=== PATIENT | female | born 1960 | race Caucasian/White ===

== ENCOUNTER 2017-03-29 10:25 | Emergency (ER) | payer OTHER ==
[~2017-03-29] VITALS: Ht 177.8 cm; Wt 110.7 kg
[2017-03-29 10:44] VITALS: BP 159/104
== END 2017-03-29 12:06 | disposition home or self-care (01) ==
LOC: ED 10:25
DX: S92.532A Displaced fracture of distal phalanx of left lesser toe(s), initial encounter for closed fracture (principal); I10 Essential (primary) hypertension; W22.8XXA Striking against or struck by other objects, initial encounter; Y93.89 Activity, other specified; Y99.8 Other external cause status; Y92.89 Other specified places as the place of occurrence of the external cause

== ENCOUNTER → 2017-10-09 | Outpatient (CLI) | payer OTHER ==
[2017-10-09 12:22] LABS: microscopic required? NO
[2017-10-09 12:26] LABS: BASOPHIL % 0.4 % (0-2); PLATELET COUNT 248 x10^3mcL (130-400)
[2017-10-09 12:34] LABS: urine erythrocyte NEGATIVE (NEGATIVE)
[2017-10-09 13:08] LABS: MAGNESIUM 2.3 mg/dL (1.8-2.4)
[2017-10-09 13:11] LABS: C REACTIVE PROTEIN < 0.2 mg/dL (<=0.9)
[2017-10-09 13:19] LABS: ALBUMIN 4.1 g/dL (3.4-5.0); ALKALINE PHOSPHATASE 226 U/L (46-116); ALT/SGPT 32 U/L (14-59); AST/SGOT 17 U/L (15-37); BILIRUBIN TOTAL 0.9 mg/dL (0.20-1.00); CALCIUM 10.4 mg/dL (8.5-10.1); CARBON DIOXIDE 25.1 mmol/L (21-32); CHLORIDE SERUM 102 mmol/L (98-107); CHOLESTEROL 224 mg/dL (<200); CHOLESTEROL/HDL RATIO 4.2; CREATININE SERUM 0.5 mg/dL (0.6-1.0); FREE T4 0.91 ng/dL (0.76-1.46); GFR1 > 60 mL/min; GLUCOSE SERUM 102 mg/dL (74-106); HDL CHOLESTEROL 53 mg/dL (40-60); POTASSIUM SERUM 3.9 mmol/L (3.5-5.1); SODIUM SERUM 141 mmol/L (136-145); TOTAL PROTEIN, SERUM 7.7 g/dL (6.4-8.2); TRIGLYCERIDES 149 mg/dL (<150)
== END | disposition home or self-care (01) ==
LOC: LB 11:36
DX: Z00.01 Encounter for general adult medical examination with abnormal findings (principal); R51 Headache; R42 Dizziness and giddiness; E66.01 Morbid (severe) obesity due to excess calories; E11.9 Type 2 diabetes mellitus without complications; Z12.4 Encounter for screening for malignant neoplasm of cervix
CPT/HCPCS: 84439

== ENCOUNTER → 2017-10-20 | Outpatient (CLI) | payer OTHER | END | disposition home or self-care (01) | LOC: MI 09:00 | PROC: B030ZZZ Magnetic Resonance Imaging (MRI) of Brain (ICD-10-PCS; principal; 2017-10-20) | DX: R51 Headache (principal); R42 Dizziness and giddiness ==

== ENCOUNTER → 2017-12-23 | Outpatient (CLI) | payer OTHER ==
[2017-12-23 11:43] LABS: CREATININE SERUM 0.6 mg/dL (0.6-1.0)
== END | disposition home or self-care (01) ==
LOC: LB 11:07
DX: R51 Headache (principal)

== ENCOUNTER → 2017-12-24 | Outpatient (CLI) | payer OTHER | END | disposition home or self-care (01) | LOC: MI 09:00 | PROC: B030YZZ Magnetic Resonance Imaging (MRI) of Brain using Other Contrast (ICD-10-PCS; principal; 2017-12-24) | DX: R51 Headache (principal); G35 Multiple sclerosis | CPT/HCPCS: A9577 ==

== ENCOUNTER → 2018-07-21 | Outpatient (CLI) | payer OTHER | END | disposition home or self-care (01) | LOC: MI 09:00 | PROC: BQ37ZZZ Magnetic Resonance Imaging (MRI) of Right Knee (ICD-10-PCS; principal; 2018-07-21) | DX: S83.511A Sprain of anterior cruciate ligament of right knee, initial encounter (principal); X58.XXXA Exposure to other specified factors, initial encounter; Y92.9 Unspecified place or not applicable ==

== ENCOUNTER → 2018-08-12 | Outpatient (CLI) | payer OTHER | END | disposition home or self-care (01) | LOC: RD 10:42 | DX: M25.561 Pain in right knee (principal) ==

== ENCOUNTER → 2018-09-03 | Outpatient (CLI) | payer OTHER ==
[2018-09-03 10:41] LABS: microscopic required? NO
[2018-09-03 10:55] LABS: BASOPHIL % 0.3 % (0-2); PLATELET COUNT 237 x10^3mcL (130-400); RED CELL DISTRIBUTION WIDTH 13.6 % (11.5-14.5)
[2018-09-03 11:01] LABS: UA SPECIFIC GRAVITY >=1.030 (1.005-1.035); urine erythrocyte NEGATIVE (NEGATIVE)
[2018-09-03 11:32] LABS: FREE T4 0.88 ng/dL (0.76-1.46); FREE THYROXINE INDEX 2.5 ug/dL (1.4-4.5); T4(THYROXINE) 7.8 ug/dL (4.7-13.3)
[2018-09-03 11:35] LABS: T3 TOTAL 1.26 ng/mL
[2018-09-03 12:30] LABS: ALBUMIN 3.9 g/dL (3.4-5.0); ALKALINE PHOSPHATASE 249 U/L (46-116); ALT/SGPT 45 U/L (14-59); AST/SGOT 18 U/L (15-37); BILIRUBIN TOTAL 0.7 mg/dL (0.20-1.00); CALCIUM 10.2 mg/dL (8.5-10.1); CARBON DIOXIDE 25.4 mmol/L (21-32); CHLORIDE SERUM 106 mmol/L (98-107); CREATININE SERUM 0.6 mg/dL (0.6-1.0); GFR1 > 60 mL/min; GLUCOSE SERUM 107 mg/dL (74-106); POTASSIUM SERUM 4.3 mmol/L (3.5-5.1); SODIUM SERUM 141 mmol/L (136-145); TOTAL PROTEIN, SERUM 7.9 g/dL (6.4-8.2)
[2018-09-04 10:16] LABS: microalbumin:creatinine ratio 7.9 (0.0-30.0)
== END | disposition home or self-care (01) ==
LOC: LB 09:40
DX: Z00.00 Encounter for general adult medical examination without abnormal findings (principal); I10 Essential (primary) hypertension
CPT/HCPCS: 84439

== ENCOUNTER → 2018-09-07 | Outpatient (CLI) | payer OTHER | END | disposition home or self-care (01) | LOC: MA 10:00 → MI 12:09 → MA 12:09 → MI 09-08 12:30 | PROC: BR30ZZZ Magnetic Resonance Imaging (MRI) of Cervical Spine (ICD-10-PCS; principal; 2018-09-07) | PROC: BR39ZZZ Magnetic Resonance Imaging (MRI) of Lumbar Spine (ICD-10-PCS; 2018-09-07) | PROC: BH02ZZZ Plain Radiography of Bilateral Breasts (ICD-10-PCS; 2018-09-07) | DX: Z12.31 Encounter for screening mammogram for malignant neoplasm of breast (principal); G54.2 Cervical root disorders, not elsewhere classified; G89.4 Chronic pain syndrome; M54.2 Cervicalgia; M53.1 Cervicobrachial syndrome | CPT/HCPCS: 77066 ==

== ENCOUNTER → 2018-10-12 | Outpatient (CLI) | payer OTHER | END | disposition home or self-care (01) | LOC: US 09:00 | PROC: BW40ZZZ Ultrasonography of Abdomen (ICD-10-PCS; principal; 2018-10-12) | DX: R94.5 Abnormal results of liver function studies (principal) ==

== ENCOUNTER → 2018-11-17 | Outpatient (CLI) | payer OTHER ==
[2018-11-17 12:01] LABS: CREATININE SERUM 0.6 mg/dL (0.6-1.0)
== END | disposition home or self-care (01) ==
LOC: LB 11:37
PROVIDERS: Preventive Medicine Preventive Medicine/Occupational Environmental Medicine
DX: R79.89 Other specified abnormal findings of blood chemistry (principal)

== ENCOUNTER → 2018-11-20 | Outpatient (CLI) | payer OTHER | END | disposition home or self-care (01) | LOC: MI 10:00 | PROC: BP39ZZZ Magnetic Resonance Imaging (MRI) of Left Shoulder (ICD-10-PCS; principal; 2018-11-20) | DX: M25.512 Pain in left shoulder (principal) | CPT/HCPCS: A9577 ==

== ENCOUNTER → 2019-04-21 | Outpatient (CLI) | payer OTHER | END | disposition home or self-care (01) | LOC: MI 10:00 | PROC: BR39ZZZ Magnetic Resonance Imaging (MRI) of Lumbar Spine (ICD-10-PCS; principal; 2019-04-21) | DX: M54.41 Lumbago with sciatica, right side (principal); M54.31 Sciatica, right side ==

== ENCOUNTER → 2019-05-19 | Outpatient (CLI) | payer OTHER ==
[2019-05-19 11:42] LABS: BASOPHIL % 0.6 % (0-2); PLATELET COUNT 244 x10^3mcL (130-400); RED CELL DISTRIBUTION WIDTH 13.4 % (11.5-14.5)
[2019-05-19 11:52] LABS: CALCIUM 10.1 mg/dL (8.5-10.1); CARBON DIOXIDE 26.8 mmol/L (21-32); CHLORIDE SERUM 106 mmol/L (98-107); CREATININE SERUM 0.6 mg/dL (0.6-1.0); GFR1 > 60 mL/min; GLUCOSE SERUM 108 mg/dL (74-106); POTASSIUM SERUM 4.1 mmol/L (3.5-5.1); SODIUM SERUM 141 mmol/L (136-145)
== END | disposition home or self-care (01) ==
LOC: LB 11:00
PROVIDERS: Preventive Medicine Preventive Medicine/Occupational Environmental Medicine
DX: Z01.812 Encounter for preprocedural laboratory examination (principal); Z01.818 Encounter for other preprocedural examination
CPT/HCPCS: Q0092

== ENCOUNTER → 2019-08-29 | Outpatient (CLI) | payer OTHER ==
[2019-08-29 12:37] LABS: CREATININE SERUM 0.6 mg/dL (0.6-1.0)
== END | disposition home or self-care (01) ==
LOC: LB 11:45 → MI 09-02 10:00
DX: Z98.890 Other specified postprocedural states (principal)

== ENCOUNTER → 2019-09-02 | Outpatient (CLI) | payer OTHER | END | disposition home or self-care (01) | LOC: MI 09:49 | PROC: B030ZZZ Magnetic Resonance Imaging (MRI) of Brain (ICD-10-PCS; principal; 2019-09-02) | DX: M54.81 Occipital neuralgia (principal) | CPT/HCPCS: A9577 ==

== ENCOUNTER → 2019-09-22 | Outpatient (CLI) | payer OTHER | END | disposition home or self-care (01) | LOC: US 09-20 14:00 | PROC: BW4GZZZ Ultrasonography of Pelvic Region (ICD-10-PCS; principal; 2019-09-22) | DX: R10.2 Pelvic and perineal pain (principal) ==

== ENCOUNTER → 2020-03-24 | Outpatient (CLI) | payer OTHER ==
[2020-03-24 12:49] LABS: ALBUMIN 3.9 g/dL (3.4-5.0); ALKALINE PHOSPHATASE 204 U/L (46-116); ALT/SGPT 38 U/L (14-59); AST/SGOT 20 U/L (15-37); BILIRUBIN TOTAL 0.7 mg/dL (0.20-1.00); CALCIUM 10.3 mg/dL (8.5-10.1); CARBON DIOXIDE 27.1 mmol/L (21-32); CHLORIDE SERUM 107 mmol/L (98-107); CREATININE SERUM 0.6 mg/dL (0.6-1.0); GFR1 > 60 mL/min; GLUCOSE SERUM 102 mg/dL (74-106); HDL CHOLESTEROL 51 mg/dL (40-60); POTASSIUM SERUM 3.8 mmol/L (3.5-5.1); SODIUM SERUM 142 mmol/L (136-145); TOTAL PROTEIN, SERUM 7.6 g/dL (6.4-8.2); TRIGLYCERIDES 107 mg/dL (<150)
[2020-03-24 12:53] LABS: CHOLESTEROL 224 mg/dL (<200); CHOLESTEROL/HDL RATIO 4.4
== END | disposition home or self-care (01) ==
LOC: LB 10:35
PROVIDERS: ATTEND Preventive Medicine Preventive Medicine/Occupational Environmental Medicine
DX: E78.5 Hyperlipidemia, unspecified (principal); I10 Essential (primary) hypertension

== ENCOUNTER 2020-03-31 14:30 | Emergency (ER) | payer OTHER ==
[~2020-03-31] VITALS: Ht 177.8 cm; Wt 114.3 kg
[2020-03-31 18:12] VITALS: BP 150/92
== END 2020-03-31 18:11 | disposition home or self-care (01) ==
LOC: ED 14:30
DX: M54.5 Low back pain (principal); M25.551 Pain in right hip; M25.561 Pain in right knee; R22.41 Localized swelling, mass and lump, right lower limb; I10 Essential (primary) hypertension; Z98.890 Other specified postprocedural states; Z90.49 Acquired absence of other specified parts of digestive tract
CPT/HCPCS: J1885